=== PATIENT | female | born 1980 | race Two or more races ===

== ENCOUNTER 2025-01-29 18:41 | Emergency (ER) | payer OTHER ==
[~2025-01-29] VITALS: Ht 157.5 cm; Wt 91.2 kg
[2025-01-29] MEDS ORDERED: MOUNJARO12.5 MG/0. SQ (19:08)
[2025-01-29] MEDS ORDERED: KETOROLAC TROMETHAMINE 60 MG VIAL IM ONE ×2 (20:00→20:25)
[2025-01-29] MEDS ORDERED: ORPHENADRINE CITRATE 30 MG/ML AMPUL IM ONE (20:00)
[2025-01-29] MEDS ORDERED: ORPHENADRINE CITRATE 30 MG/ML AMPUL ONE (20:25)
[2025-01-29] MEDS ORDERED: DICLOFENAC SODI75 MG PO (20:59)
== END 2025-01-29 21:09 | disposition home or self-care (01) ==
LOC: ER 18:41
DX: M12.562 Traumatic arthropathy, left knee (principal); T14.90XS Injury, unspecified, sequela; W18.39XS Other fall on same level, sequela; M54.50 Low back pain, unspecified
CPT/HCPCS: 72100; 73560; 96372; 99283; J1885; J2360

== ENCOUNTER 2025-06-19 16:29 | Emergency (ER) | payer OTHER ==
[~2025-06-19] VITALS: Ht 157.5 cm; Wt 92.1 kg
[~2025-06-19 16:29] MED LIST: DICLOFENAC SODI75 MG PO; MOUNJARO12.5 MG/0. SQ
[2025-06-19] MEDS ORDERED: KETOROLAC TROMETHAMINE 30 MG VIAL ONE (18:44)
[2025-06-19] MEDS ORDERED: DEXAMETHASONE SODIUM PHOSPHATE 4 MG/ML VIAL IM ONE (18:45)
[2025-06-19] MEDS ORDERED: DEXAMETHASONE SODIUM PHOSPHATE 4 MG/ML VIAL ONE (18:45)
[2025-06-19] MEDS ORDERED: ORPHENADRINE CITRATE 30 MG/ML AMPUL ONE (18:45)
[2025-06-19] MEDS ORDERED: KETOROLAC TROMETHAMINE 30 MG VIAL IM ONE (18:45)
[2025-06-19] MEDS ORDERED: ORPHENADRINE CITRATE 30 MG/ML AMPUL IM ONE (18:45)
== END 2025-06-20 01:48 | disposition home or self-care (01) ==
LOC: ER 16:29
DX: M25.511 Pain in right shoulder (principal)